=== PATIENT | male | born 1980 | race Caucasian/White ===

== ENCOUNTER 2021-06-28 00:56 | Emergency (ER) | payer MEDICAID, OTHER ==
[~2021-06-28] VITALS: Ht 172.7 cm; Wt 84.1 kg
[2021-06-28] MEDS ORDERED: LORazepam 2 mg/ml vial IV ONE ×4 (01:05→02:15)
[2021-06-28] MEDS ORDERED: normal saline 1000ml 1,000 ML IV ONE ×2 (01:15)
[2021-06-28] MEDS ORDERED: thiamine 100mg/ml 2ml inj. IV ONE ×2 (01:15→07:10)
[2021-06-28 03:28] LABS: BASOPHILS % (AUTO) 0.3 % (0-1); EOSINOPHILS % (AUTO) 0 % (0-6); HEMATOCRIT 35.7 % (42.0-52.0); HEMOGLOBIN 12.4 g/dl (14.0-17.9); LYMPHOCYTES # (AUTO) 0.2 X10'3 (1.1-4.8); LYMPHOCYTES % (AUTO) 4.6 % (21-51); MEAN CORPUSCULAR HEMOGLOBIN 34.2 PG (27.0-31.0); MEAN CORPUSCULAR HGB CONC 34.7 g/dL (33.0-36.5); MEAN CORPUSCULAR VOLUME 98.5 FL (78-98); MEAN PLATELET VOLUME 7.5 FL (7.4-10.4); MONOCYTES # (AUTO) 0.8 X10'3 (0-0.9); MONOCYTES % (AUTO) 17.5 % (2-12); NEUTROPHILS # (AUTO) 3.7 X10'3 (1.8-7.7); NEUTROPHILS % (AUTO) 77.6 % (42-75); PLATELET COUNT 96 X10'3 (140-440); RED BLOOD COUNT 3.63 X10'6 (4.70-6.10); RED CELL DISTRIBUTION WIDTH 18.5 % (11.5-14.5); WHITE BLOOD COUNT 4.7 X10'3 (4.5-11.0)
[2021-06-28 03:33] LABS: ALANINE AMINOTRANSFERASE 79 U/L (12-78); ALBUMIN 3.5 G/DL (3.4-5.0); ALBUMIN/GLOBULIN RATIO 0.9 (1.1-1.5); ALKALINE PHOSPHATASE 70 IU/L (46-116); ANION GAP 11 (8-16); ASPARTATE AMINO TRANSFERASE 125 U/L (10-37); BILIRUBIN,TOTAL 0.8 MG/DL (0.1-1.0); BLOOD UREA NITROGEN 4 MG/DL (7-18); BUN/CREATININE RATIO 5.2 (5.4-32.0); CALCIUM 6.5 MG/DL (8.5-10.1); CHLORIDE 95 MMOL/L (99-107); CREATININE 0.77 MG/DL (0.60-1.10); GLUCOSE 129 MG/DL (70-104); SODIUM 131 MMOL/L (135-145); TOTAL CARBON DIOXIDE 25.2 MMOL/L (24-32); TOTAL PROTEIN 7.3 G/DL (6.4-8.2); eGFR > 90 ML/MIN
[2021-06-28 03:39] LABS: POTASSIUM 2.7 MMOL/L (3.5-5.1)
[2021-06-28] MEDS ORDERED: calcium gluconate inj. 1 GM in normal saline 100ml IV soln 100 ML IV ONE (04:10)
[2021-06-28] MEDS: potassium Cl 10 mEq/100mL bag IV SCH ×3 (04:10→06:10)
[2021-06-28] MEDS ORDERED: phenobarbital inj 500 MG in normal saline 250ml IV soln 250 ML IV ONE (04:20)
[2021-06-28] MEDS ORDERED: CALCIUM GLUC 1gm/50ml NACL,iso 50 ML IV ONE (04:25)
[2021-06-28] MEDS ORDERED: phenobarbital inj 500 MG in normal saline 250ml IV soln 246.1538 ML IV ONE (04:33)
[2021-06-28] MEDS ORDERED: mag hydrox/Alum hydrox/simeth 30ml oral suspension PO PRN ×2 (07:10)
[2021-06-28] MEDS ORDERED: cyclobenzaprine 10mg tablet PO PRN (07:10)
[2021-06-28] MEDS ORDERED: dextrose 5%-1/2 normal saline 1,000 ML IV SCH (07:10)
[2021-06-28] MEDS ORDERED: magnesium hydroxide 30ml (MOM) UD suspension PO PRN (07:10)
[2021-06-28] MEDS ORDERED: ondansetron/PF 4mg/2ml inj IV PRN (07:10)
[2021-06-28] MEDS ORDERED: acetaminophen 325mg tablet PO PRN ×2 (07:10)
[2021-06-28] MEDS ORDERED: haloperidol lactate 5mg/ml inj IM PRN (07:10)
[2021-06-28] MEDS ORDERED: morphine 2 MG/ML inj. syringe IV PRN ×2 (07:10)
[2021-06-28] MEDS ORDERED: HYDROcodone/acetaminophen 10/325mg tab PO PRN (07:10)
[2021-06-28] MEDS ORDERED: loperamide 2mg capsule PO PRN ×2 (07:10)
[2021-06-28] MEDS ORDERED: dicyclomine 10 MG capsule PO PRN (07:10)
[2021-06-28] MEDS ORDERED: dextrose 50%-water 50ml dispensing syringe IV PRN (07:10)
[2021-06-28] MEDS ORDERED: cloNIDine 0.1 mg tablet PO PRN (07:10)
[2021-06-28] MEDS ORDERED: HYDROcodone/acetaminophen 5mg/325mg tablet PO PRN (07:10)
[2021-06-28] MEDS ORDERED: LORazepam 2 mg/ml vial IV PRN ×2 (07:10)
[2021-06-28] MEDS ORDERED: docusate sod 100mg capsule PO SCH (08:00)
[2021-06-28] MEDS ORDERED: magnesium 4gm in 100ml NS 100 ML IV PRN (08:00)
[2021-06-28] MEDS ORDERED: magnesium Cl slow-release 64mg tablet PO PRN (08:00)
[2021-06-28] MEDS ORDERED: potassium Cl 40MEQ/1/2NS 520ml 520 ML IV PRN (08:00)
[2021-06-28] MEDS ORDERED: potassium Cl 20 mEq SR tablet PO PRN ×2 (08:00)
[2021-06-28] MEDS ORDERED: K and/or MAG REPLACEMENT MC SCH (08:00)
[2021-06-28 08:41] VITALS: BP 120/89
[2021-06-28 12:24] LABS: MAGNESIUM 0.7 MG/DL (1.5-2.4); PHOSPHORUS 1.1 MG/DL (2.3-4.5)
== END 2021-06-28 10:19 | disposition home or self-care (01) ==
LOC: ER 00:56 → ED HOLD 07:11 → INTOOBSV 07:11 → UNDOADMOB 07:11 → ER 10:19 → UNDODISOB 11:00
DX: F10.239 Alcohol dependence with withdrawal, unspecified (principal); R56.9 Unspecified convulsions; E87.6 Hypokalemia; Y90.9 Presence of alcohol in blood, level not specified
CPT/HCPCS: 36415; 70450; 80053; 83735; 84100; 85025; 93005; 96361; 96365; 96366; 96375; 96376; 99291; 99292; J2060; J2560; J3411; J3480; J7030; J7050; G0378